=== PATIENT | female | born 1960 | race Caucasian/White ===

== ENCOUNTER 2018-06-20 09:45 | Emergency (ER) | payer MEDICAID ==
[2018-06-20 09:45] VITALS: BMI 32.1
[2018-06-20 10:01] VITALS: TEMP 97.8
--- NOTE | 2018-06-20 11:28 | ED PDOC ---
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 Patient's notes patient used her nebulizer at home last night and takes albuterol inhaler daily. Patient states she took 2 puffs of her inhaler this morning before work. Patient's reports patient has not been on steroids recently nor has she ever been admitted or intubated for her asthma. Patient states a trigger for an asthma attack is a smoke-filled room like in her job. Patient also reports having a chronic skin rash all over her body, for which she is currently being treated by her PCP, with no associated complaints. Patient denies any chest pain, fever, chills, diarrhea, vomiting, urinary symptoms, neck pain, headache, dizziness, or any other complaints. PMD: Dr. Burgos Time/Duration: 4-6 hours (earlier today) Symptom Onset: Gradual Symptom Course: Unchanged Activities at Onset: Light Context: Work (Cook) Past Medical History - Provider Review Nursing Documentation Reviewed: Yes - Infectious Disease Hx of Infectious Diseases: None - Tetanus Immunization Tetanus Immunization: Unknown - Reproductive Menopause: Yes - Past Medical History Past Medical History: No Previous - Cardiac Hx Cardiac Disorders: No Hx Pacemaker: No - Pulmonary Hx Respiratory Disorders: Yes (Acute bronchitis x2) Hx Asthma: Yes Hx Chronic Obstructive Pulmonary Disease (COPD): Yes - Neurological Hx Paralysis: No - Hematological/Oncological Hx Blood Transfusions: No Hx Blood Transfusion Reaction: No - Musculoskeletal/Rheumatological Hx Musculoskeletal Disorders: No - Psychiatric Hx Emotional Abuse: No Hx Physical Abuse: No Hx Substance Use: No - Past Surgical History Past Surgical History: No Previous - Surgical History Hx Cholecystectomy: Yes - Anesthesia Hx Anesthesia: No Hx Anesthesia Reactions: No Hx Malignant Hyperthermia: No - Suicidal Assessment Feels Threatened In Home Enviroment: No Family/Social History - Physician Review Nursing Documentation Reviewed: Yes Family/Social History: Unknown Family HX Smoking Status: Never Smoked Hx Alcohol Use: No Hx Substance Use: No Hx Substance Use Treatment: No Allergies/Home Meds Allergies/Adverse Reactions: Allergies aspirin Allergy (Verified 05/02/16 18:46) NAUSEA Review of Systems - Physician Review All systems were reviewed & negative as marked: Yes - Review of Systems Constitutional: absent: Fevers, Night Sweats Respiratory: SOB, Wheezing. absent: Cough Cardiovascular: absent: Chest Pain Gastrointestinal: Nausea. absent: Diarrhea, Vomiting Genitourinary Female: absent: Urine Output Changes Musculoskeletal: Back Pain. absent: Neck Pain Skin: Rash (+rash all over body) Physical Exam Vital Signs Reviewed: Yes Vital Signs Temp Pulse Resp BP Pulse Ox 06/20/18 10:00 97.8 F 86 18 147/94 H 95 Temperature: Afebrile Blood Pressure: Hypertensive Pulse: Regular Respiratory Rate: Normal Appearance: Positive for: Well-Appearing, Non-Toxic, Comfortable Pain Distress: None Mental Status: Positive for: Alert and Oriented X 3 - Systems Exam Head: Present: Atraumatic, Normocephalic Pupils: Present: PERRL Extroacular Muscles: Present: EOMI Conjunctiva: Present: Normal Mouth: Present: Moist Mucous Membranes Neck: Present: Normal Range of Motion Respiratory/Chest: Present: Clear to Auscultation, Good Air Exchange (+normal respiratory effort), Decreased Breath Sounds. No: Respiratory Distress, Accessory Muscle Use, Wheezes, Rales, Retracting, Rhonchi, Tachypneic, Tender to Palpation Cardiovascular: Present: Regular Rate and Rhythm, Normal S1, S2. No: Murmurs Abdomen: No: Tenderness, Distention, Peritoneal Signs Back: Present: Normal Inspection Upper Extremity: Present: Normal Inspection. No: Cyanosis, Edema Lower Extremity: Present: Normal Inspection. No: Edema Neurological: Present: GCS=15, CN II-XII Intact, Speech Normal Skin: Present: Warm, Rashes (+papular erythemic diffused rash bilaterally on upper and lower extremity), Normal Color. No: Diaphoretic, Erythematous, Induration, Hot, Cold, Pale, Laceration, Abscess, Abrasion Psychiatric: Present: Alert, Oriented x 3, Normal Insight, Normal Concentration Medical Decision Making ED Course and Treatment: 06/20/18 11:30 Impression: 58 year old female presenting to the emergency department complaining of asthma attack. Plan: -- EKG -- Duoneb -- Prednisone -- ED Peak flow -- Reassess and disposition Prior Visits: Notes and results from previous visits were reviewed. Progress Notes: 06/20/18 11:40 Peak flow was order, however, Nurse informed me there is none available. 06/20/18 13:10 Patient was reassessed and reports feeling better. Upon reassessment, patient's lungs are clear, breaths sounds are clear with good air entry, and no wheezing. Patient will be discharged home with a prescription for Prednisone for 5 days starting tomorrow and a follow up appointment with her primary care doctor in the next few days. - Scribe Statement The provider has reviewed the documentation as recorded by the Salibjeremy Ricketts All medical record entries made by the Scribe were at my direction and personally dictated by me. I have reviewed the chart and agree that the record accurately reflects my personal performance of the history, physical exam, medical decision making, and the department course for this patient. I have also personally directed, reviewed, and agree with the discharge instructions and disposition. Disposition/Present on Arrival - Present on Arrival Any Indicators Present on Arrival: No History of DVT/PE: No History of Uncontrolled Diabetes: No Urinary Catheter: No History of Decub. Ulcer: No History Surgical Site Infection Following: None - Disposition Have Diagnosis and Disposition been Completed?: Yes Diagnosis: Asthma exacerbation Disposition: HOME/ ROUTINE Disposition Time: 13:02 Patient Plan: Discharge Patient Problems: Current Active Problems Problem Status Onset Asthma exacerbation Acute Condition: IMPROVED Discharge Instructions (ExitCare): Asthma in Adults Additional Instructions: ÓSCAR HERNANDEZ, thank you for letting us take care of you today. Your provider was Yoanna Barroso MD and you were treated for shortness of breath. The emergency medical care you received today was directed at your acute symptoms. If you were prescribed any medication, please fill it and take as directed. It may take several days for your symptoms to resolve. Return to the Emergency Department if your symptoms worsen, do not improve, or if you have any other problems. Please contact your doctor for a follow up appointment in 2-3 days. Bring any paperwork you were given at discharge with you along with any medications you are taking to your follow up visit. Our treatment cannot replace ongoing medical care by a primary care provider outside of the emergency department. Thank you for allowing the [facility] team to be part of your care today. Prescriptions: Prednisone 50 mg PO DAILY 5 Days #5 tablet Referrals: Wandy Burgos [Primary Care Provider] - Follow up with primary Forms: [employer] (Nepali)
[2018-06-20] MEDS: Albuterol-Ipratrop 3 mg / 0.5 (3 ml) UD IH SCH ×3 (11:44→12:27)
[2018-06-20 13:15] VITALS: BP 131/69; PULSE 98; RESP 18; O2SAT 99
--- NOTE | 2018-06-20 15:12 | CARD ---
APPROVED REPORT Date of service: 06/20/2018 EKG Measurement Heart [id number] <Conclusion> Normal sinus rhythm Biatrial enlargement Left axis deviation Pulmonary disease pattern Abnormal ECG
== END 2018-06-20 13:59 | disposition home or self-care (01) ==
LOC: ED 09:45
DX: J45.901 Unspecified asthma with (acute) exacerbation (principal)